=== PATIENT | female | born 1960 | race Caucasian/White ===

== ENCOUNTER 2017-12-16 20:26 | Outpatient (CLI) | payer OTHER ==
--- NOTE | 2017-12-17 11:11 | XRAY Report ---
Procedure Date: 12/16/2017 Accession Number: [id number] / [id number] Procedure: XR - Ribs 2 View RT CPT Code: FULL RESULT: EXAM: Ribs 2 View RT DATE: 12/16/2017 8:55 PM CLINICAL HISTORY: RIGHT RIB PAIN, THORACIC BACK PAIN COMPARISON: None. TECHNIQUE: 2 views. FINDINGS: Bones: Normal. No fracture or bone lesion. Lungs: No focal opacities evident. No pneumothorax or pleural effusions. Mediastinum: Heart and cardiomediastinal contours are unremarkable. Other: None. IMPRESSION: Normal rib radiography. [facility]
--- NOTE | 2017-12-17 11:12 | XRAY Report ---
Procedure Date: 12/16/2017 Accession Number: [id number] / [id number] Procedure: XR - Thoracic Spine 2 View CPT Code: FULL RESULT: EXAM: Thoracic Spine 2 View DATE: 12/16/2017 8:55 PM CLINICAL HISTORY: RIGHT RIB PAIN, THORACIC BACK PAIN COMPARISON: None. TECHNIQUE: 2 views. FINDINGS: Alignment: Normal. No spondylolisthesis or scoliosis. Bones: No fractures or bone lesions. Disks: Mild degenerative disc disease. Soft Tissues: Normal. The visualized lungs and cardiomediastinal silhouette are normal. IMPRESSION: Mild degenerative disc disease. No evidence of fracture. [facility]
== END 2017-12-16 20:27 | disposition home or self-care (01) ==
LOC: DI 20:26
PROVIDERS: ATTEND Family Medicine
DX: M51.34 Other intervertebral disc degeneration, thoracic region (principal); R07.81 Pleurodynia
CPT/HCPCS: 72070

== ENCOUNTER 2021-10-29 08:00 | Outpatient (CLI) | payer BC, OTHER ==
--- NOTE | 2021-10-30 09:09 | XRAY Report ---
PROCEDURE: Finger(s) LT INDICATIONS: L FINGER PX TECHNIQUE: AP hand, 2 views of the fourth finger(s) acquired. COMPARISON: None FINDINGS: Bones: No fractures or dislocations. Mild osteoarthritic changes are seen in fourth PIP and DIP join ts. No bony erosive changes. No suspicious bony lesions. Soft tissues: No suspicious soft tissue calcifications. 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 No fracture or dislocation. No bony erosive changes. Reviewed by: Lennox Bergman MD on 10/30/2021 9:07 AM PDT Approved by: Lennox Bergman MD on 10/30/2021 9:07 AM PDT Station ID: [id number]
== END 2021-10-29 23:59 | disposition home or self-care (01) ==
LOC: DI.N 08:00
PROVIDERS: ATTEND Physician Assistant
DX: M19.042 Primary osteoarthritis, left hand (principal)